=== PATIENT | female | born 1995 | race Caucasian/White ===

== ENCOUNTER 2017-07-04 11:24 | Emergency (ER) | payer OTHER ==
[~2017-07-04] VITALS: Ht 162.6 cm; Wt 63.6 kg
[2017-07-04 11:31] VITALS: BP 120/67; PULSE 82; TEMP 98.2
[2017-07-04] MEDS ORDERED: PROZAC 20MG20 MG PO (11:33)
[2017-07-04] MEDS ORDERED: ESTARYLLA 35 MC1 TAB PO (12:01)
[2017-07-04 12:44] LABS: AMPHETAMINE URINE POSITIVE; BARBITURATES URINE NEGATIVE; BENZODIAZEPINES URINE NEGATIVE; BUPRENORPHINE URINE NEGATIVE; METHADONE URINE NEGATIVE; OPIATES URINE NEGATIVE; OXYCODONE URINE NEGATIVE; PHENCYCLIDINE URINE NEGATIVE; PROPOXYPHENE URINE NEGATIVE; THC CANNABINOIDS URINE NEGATIVE; TRICYCLIC ANTIDEPRESS URINE NEGATIVE
[2017-07-13 07:18] LABS: 7-AMINOFLUNITRAZEPAM NEGATIVE (NEGATIVE); FLUNITRAZEPAM NEGATIVE (NEGATIVE)
== END 2017-07-04 13:07 | disposition home or self-care (01) ==
LOC: COL.ER 11:24
PROVIDERS: Physician Assistant
DX: F15.10 Other stimulant abuse, uncomplicated (principal)